=== PATIENT | male | born 1935 | race Caucasian/White ===

== ENCOUNTER 2019-04-14 20:03 | Observation (INO) | payer MEDICARE, OTHER ==
[2019-04-14 21:12] LABS: ADD MAN DIFF? NO
[2019-04-14 21:19] LABS: WHITE BLOOD COUNT 7.6 10^3/ul (4.8-10.8)
[2019-04-14 21:19] LABS: BASOPHILS % 0.5 % (0.0-2.0); EOSINOPHILS # 0.1 10^3/ul (0.0-0.5); EOSINOPHILS % 1.3 % (0.0-7.0); HEMOGLOBIN 12.4 g/dl (14.0-18.0); LYMPHOCYTES # 1.3 10^3/ul (0.8-2.9); LYMPHOCYTES % 17.3 % (15.0-51.0); MEAN CORPUSCULAR HEMOGLOBIN 29.2 pg (29.0-33.0); MEAN CORPUSCULAR HGB CONC 31.8 g/dl (32.0-37.0); MEAN PLATELET VOLUME 9.3 fl (7.4-10.4); MONOCYTE # 0.6 10^3/ul (0.3-0.9); MONOCYTES % 7.6 % (0.0-11.0); NEUTROPHIL # 5.6 10^3/ul (1.6-7.5); PLATELET COUNT 192 10^3/UL (140-415); RED BLOOD COUNT 4.24 10^6/ul (4.70-6.10); RED CELL DISTRIBUTION WIDTH 13.9 % (11.5-14.5)
[2019-04-14 21:35] LABS: ALANINE AMINOTRANSFERASE 21 IU/L (13-69); ALBUMIN 3.9 g/dl (3.3-4.9); ALBUMIN/GLOBULIN RATIO 1.18; ALKALINE PHOSPHATASE 106 IU/L (42-121); ANION GAP 7 (5-13); ASPARTATE AMINO TRANSFERASE 17 IU/L (15-46); BILIRUBIN,INDIRECT 0.8 mg/dl (0-1.1); BILIRUBIN,TOTAL 0.8 mg/dl (0.2-1.3); BLOOD UREA NITROGEN 23 mg/dl (7-20); CALCIUM 10.5 mg/dl (8.4-10.2); CARBON DIOXIDE 31 mmol/L (21-31); CHLORIDE 107 mmol/L (97-110); CREATININE 1.48 mg/dl (0.61-1.24); GLUCOSE 113 mg/dl (70-220); POTASSIUM 3.5 mmol/L (3.5-5.1); SODIUM 145 mmol/L (135-144); TOTAL PROTEIN 7.2 g/dl (6.1-8.1)
[2019-04-14 21:36] LABS: INR 1.05; PROTIME 13.8 Sec (11.9-14.9); PT RATIO 1.1
[2019-04-14 21:48] LABS: B-TYPE NATRIURETIC PEPTIDE 7030 PG/ML (0-450); TROPONIN-I 0.034 ng/ml (0.000-0.120)
[2019-04-14] MEDS ORDERED: NITROGLYCERIN (SL) 0.4 MG TAB SL (23:30)
[2019-04-14] MEDS ORDERED: ONDANSETRON 4 MG INJ IV ×2 (23:30)
[2019-04-14] MEDS ORDERED: NACL 0.9% 3 ML SYG IV (23:30)
[2019-04-14] MEDS ORDERED: ACETAMINOPHEN 325 MG TAB PO (23:30)
[2019-04-14] MEDS ORDERED: DOCUSATE SODIUM 100 MG CAP PO (23:30)
[2019-04-14] MEDS ORDERED: BISACODYL (EC) 5 MG TAB PO (23:30)
[2019-04-15] MEDS: morphine 2 MG INJ IV ×2 (01:32→06:10)
[2019-04-15] MEDS: HEPARIN 5,000 UNIT/1 ML VIAL SC ×3 (01:37→14:42)
[2019-04-15 03:38] LABS: HEMOGLOBIN A1C 5.1 % (0-5.9)
[2019-04-15 03:41] LABS: CHOLESTEROL 195 mg/dl (100-200); CREATINE KINASE 46 IU/L (23-200); HDL CHOLESTEROL 39 mg/dl (31-75); LDL CHOLESTEROL,CALCULATED 136 mg/dl; TRIGLYCERIDES 102 mg/dl (0-149)
[2019-04-15 03:41] LABS: MAGNESIUM 1.7 mg/dl (1.7-2.5)
[2019-04-15 03:54] LABS: CK-MB 1.39 ng/ml (0.0-2.4); TROPONIN-I 0.034 ng/ml (0.000-0.120)
[2019-04-15] MEDS ORDERED: PENDING SANTYL ORDER FOR WOUND CARE XX (05:30)
[2019-04-15] MEDS: SODIUM CHLORIDE 0.45% 500 ML BAG IV* (05:51)
[2019-04-15] MEDS: ASPIRIN 81 MG TAB PO (08:30)
[2019-04-15 09:10] LABS: CREATINE KINASE 47 IU/L (23-200)
[2019-04-15 09:23] LABS: CK-MB 1.43 ng/ml (0.0-2.4); TROPONIN-I 0.051 ng/ml (0.000-0.120)
[2019-04-15] MEDS: METOPROLOL (XL) 25 MG TAB PO ×2 (17:30)
[2019-04-15] MEDS: ACETAMINOPHEN 325 MG TAB PO (20:54)
[2019-04-15] MEDS: ATORVASTATIN 20 MG TAB PO (20:54)
[2019-04-15] MEDS: APIXABAN 5 MG TABLET PO (20:54)
[2019-04-15] MEDS ORDERED: APIXABAN 5 MG TABLET PO (21:00)
[2019-04-16 05:38] LABS: ADD MAN DIFF? NO
[2019-04-16 05:41] LABS: WHITE BLOOD COUNT 5.8 10^3/ul (4.8-10.8)
[2019-04-16 05:41] LABS: BASOPHILS % 0.5 % (0.0-2.0); EOSINOPHILS # 0.2 10^3/ul (0.0-0.5); EOSINOPHILS % 2.8 % (0.0-7.0); HEMATOCRIT 35.2 % (42.0-52.0); HEMOGLOBIN 11.2 g/dl (14.0-18.0); LYMPHOCYTES # 1.4 10^3/ul (0.8-2.9); LYMPHOCYTES % 24.4 % (15.0-51.0); MEAN CORPUSCULAR HEMOGLOBIN 29.1 pg (29.0-33.0); MEAN CORPUSCULAR HGB CONC 31.8 g/dl (32.0-37.0); MEAN CORPUSCULAR VOLUME 91.4 fl (82.0-101.0); MEAN PLATELET VOLUME 9.8 fl (7.4-10.4); MONOCYTE # 0.5 10^3/ul (0.3-0.9); MONOCYTES % 8.4 % (0.0-11.0); NEUTROPHIL # 3.7 10^3/ul (1.6-7.5); NEUTROPHILS % 63.4 % (39.0-77.0); PLATELET COUNT 169 10^3/UL (140-415); RED BLOOD COUNT 3.85 10^6/ul (4.70-6.10); RED CELL DISTRIBUTION WIDTH 13.8 % (11.5-14.5)
[2019-04-16 06:02] LABS: ALANINE AMINOTRANSFERASE 14 IU/L (13-69); ALBUMIN/GLOBULIN RATIO 1.03; ALKALINE PHOSPHATASE 77 IU/L (42-121); ANION GAP 6 (5-13); ASPARTATE AMINO TRANSFERASE 15 IU/L (15-46); BILIRUBIN,INDIRECT 0.7 mg/dl (0-1.1); BILIRUBIN,TOTAL 0.7 mg/dl (0.2-1.3); BLOOD UREA NITROGEN 19 mg/dl (7-20); CALCIUM 9.6 mg/dl (8.4-10.2); CARBON DIOXIDE 30 mmol/L (21-31); CHLORIDE 108 mmol/L (97-110); CREATININE 1.08 mg/dl (0.61-1.24); GLUCOSE 100 mg/dl (70-220); MAGNESIUM 1.6 mg/dl (1.7-2.5); POTASSIUM 3.3 mmol/L (3.5-5.1); SODIUM 144 mmol/L (135-144); TOTAL PROTEIN 5.9 g/dl (6.1-8.1)
[2019-04-16 06:07] LABS: B-TYPE NATRIURETIC PEPTIDE 6260 PG/ML (0-450)
[2019-04-16] MEDS: APIXABAN 5 MG TABLET PO ×2 (08:13→20:04)
[2019-04-16] MEDS: POTASSIUM CHLORIDE (SR) 20 MEQ TAB PO (08:13)
[2019-04-16] MEDS: METOPROLOL (XL) 25 MG TAB PO (08:14)
[2019-04-16] MEDS: MAGNESIUM SULFATE 2 GM/50 ML 50 ML IVPB (08:18)
[2019-04-16] MEDS: LISINOPRIL 5 MG TAB PO (08:18)
[2019-04-16 09:17] LABS: FREE T4 (FREE THYROXINE) 1.57 ng/dl (0.85-1.93)
[2019-04-16] MEDS: ATORVASTATIN 20 MG TAB PO (20:04)
== END 2019-04-16 20:17 | disposition home or self-care (01) ==
LOC: 6WM 23:20 → E/R 20:03
DX: R07.9 Chest pain, unspecified (principal); I13.0 Hypertensive heart and chronic kidney disease with heart failure and stage 1 through stage 4 chronic kidney disease, or unspecified chronic kidney disease; N18.9 Chronic kidney disease, unspecified; I50.22 Chronic systolic (congestive) heart failure; N17.9 Acute kidney failure, unspecified; I48.91 Unspecified atrial fibrillation; I25.10 Atherosclerotic heart disease of native coronary artery without angina pectoris; Z95.1 Presence of aortocoronary bypass graft; Z87.891 Personal history of nicotine dependence; E78.5 Hyperlipidemia, unspecified; Z95.810 Presence of automatic (implantable) cardiac defibrillator
CPT/HCPCS: 36415; 71045; 80053; 80061; 82550; 82553; 83036; 83735; 83880; 84439; 84443; 84484; 85025; 85610; 93005; 93306; 99285-25; G0378